=== PATIENT | female | born 1975 ===

== ENCOUNTER → 2018-12-05 10:41 | Day surgery (SDC) | payer BC ==
[~2018-12-05 10:41] MED LIST: Bacitracin OINTMENT* 0.5% 0.5 oz TUBE ONE; Buffered Lidocaine 1% SYRIN* 1 ML/SYRINGE INTRADERM ONE; Dexamethasone IV* 4 MG/ML 1 ML (4 MG) ONE; DiMENhydriNATE IV* 50 MG/ML VIAL ONE; Lactated Ringers 1000 ML Bag* 1,000 ML IV SCH; Lidocain 1% EPI 1:100,000 * 30 ML MDV ONE; Lidocaine 2% PF * 5 ML VIAL ONE; Lidocaine 4% TOPICAL* 50 ML TOP.SOLN ONE; Naloxone* 0.4 MG/ML 1 ML VIAL IV PRN; Ondansetron INJ* 2 MG/ML VIAL IV PRN; Ondansetron INJ* 2 MG/ML VIAL ONE; Oxymetazoline 0.05% NASAL SPR* 15 ML BTL ONE; Propofol* 10 MG/ML 20 ML BTL ONE; Scopolamine 1.5 mg* PATCH ONE; Sodium Citrate/Citric Acid* 15 ML UDC ONE; Sodium Citrate/Citric Acid* 15 ML UDC PO ONE; Succinylcholine* 20 MG/ML 10 ML VIAL ONE; fentaNYL* 50 MCG/ML 2 ML VIAL (100 MCG VIAL) IV PRN; fentaNYL* 50 MCG/ML 2 ML VIAL (100 MCG VIAL) ONE
[2018-12-05 19:01] VITALS: BP 130/76
--- NOTE | 2018-12-05 22:58 | OP ---
DATE OF OPERATION: 12/05/18 - [facility] DATE OF : 79 SURGEON: Jason Pimentel MD. BREAD AND PASTRY BAKER: None. ANESTHESIA: General. PRE-OP DIAGNOSIS: Deviated nasal septum, left inferior turbinate hypertrophy. POST-OP DIAGNOSIS: Deviated nasal septum, left inferior turbinate hypertrophy. OPERATIVE PROCEDURE: Septoplasty with left inferior turbinate cautery and outfracture. ESTIMATED BLOOD LOSS: Approximately 30 cc. SPECIMEN: None. There was some septal cartilage and bone that was discarded. INDICATION: This is a 43-year-old woman with really life long nasal airway obstruction. I first evaluated her for this about 12 years ago and at that point it was very clear that the majority of the issue was anatomic. She had an extremely deviated septum with compensatory hypertrophy of the left inferior turbinate. The decision was made ultimately to proceed with surgery. DESCRIPTION OF PROCEDURE: On 12/05/18, the patient was brought to the operating room. General anesthesia was induced and an oral endotracheal tube was placed. The patient was draped. A time-out was performed. Afrin and 4% lidocaine lidocaine-soaked pledgets were placed into each nasal cavity. The septum was then infiltrated with 1% lidocaine with 1:100,000 epinephrine, as was the columella. Once adequate time had been allotted for decongestion and vasoconstriction, the procedure was begun. A left hemitransfixion incision was made with a 15-blade. A left mucoperichondrial flap was elevated. Posterior to the transection incision, a vertical incision was made to the quadrangular cartilage providing access to submucoperichondrial space on the right. A mucoperichondrial flap on the right was then elevated. A combination of instruments, including a Lizzy swivel knife, through-cutting scissors and through-cutting rongeurs were used to remove the portions of septal cartilage and bone that were involved in deviation. Once this was complete, attention was turned towards the left inferior turbinate. It was in-fractured. Multiple passes were made through the turbinate with the Elmed bipolar device, it was then out-fractured. A large piece of quadrangular cartilage, which had been removed, was then selected. It was morselized and then placed back between the mucoperichondrial flaps and sutured in position with 4-0 plain gut. There was a tear in the right mucoperichondrial flap overlying the septal spur, but this was relatively minor and there was no opposing tear on the contralateral flap. The hemitransfixion incision was then closed with 4-0 chromic. Magnetic septal splints were then placed and sutured in position with 4-0 Prolene. The patient was then returned to the care of the anesthesiologist, extubated, and delivered to the PACU in stable condition. [id number]/[facility] #: [id number] CRISTINA
== END | disposition home or self-care (01) ==
LOC: OR 10:41
PROVIDERS: ATTEND Otolaryngology
DX: J34.2 Deviated nasal septum (principal); J34.3 Hypertrophy of nasal turbinates; I34.1 Nonrheumatic mitral (valve) prolapse
CPT/HCPCS: 81025; A9270-GY; J0330; J1100; J1240; J2405; J2704; J3010

== ENCOUNTER 2019-10-19 20:45 | Emergency (ER) | payer BC ==
--- OUTSIDE RECORDS SUMMARY | 2019-10-19 20:51 | XMS REPORT | Continuity of Care Document ---
:1975 External Reference #:[id number] Author Name BERNARD Pearson Address [address] [place] [address] Care Team Providers Name Role Phone Angy Pineda M.D. - Family Medicine Care Team Information Hotel General Manager Unavailable Jason Pimentel MD - Otolaryngology Care Team Information Hotel General Manager [phone] Problems Description No Active Problems Social History Type Date Description Comments Sex Unknown Tobacco Use Start: Unknown Never Smoked Cigarettes ETOH Use Occasional Tobacco Use Start: Unknown Patient has never smoked Smoking Status Reviewed: 09/05/17 Patient has never smoked Allergies, Adverse Reactions, Alerts Description No Known Drug Allergies Medications Active Medications SIG Qnty Indications Ordering Provider Date Mirena as directed Unknown 20mcg/24HR IUD Immunizations CPT Code Status Date Vaccine Lot # [id number] Given 05/31/2017 Influenza Vac, [place] [address] Given 05/17/2016 Influenza Vac, Quadrivalent, Slit Virus, Im Vital Signs Date Vital Result Comment 09/04/2019 4:03pm BP Systolic 100 mmHg BP Diastolic 74 mmHg Heart Rate 54 /min Body Temperature 97.5 F Height 67 inches 5'7" Weight 135.00 lb BMI (Body Mass Index) 21.1 kg/m2 09/17/2018 5:52pm BP Systolic 130 mmHg BP Diastolic 82 mmHg Heart Rate 66 /min Body Temperature 97.3 F Height 67 inches 5'7" Weight 134.00 lb BMI (Body Mass Index) 21.0 kg/m2 Results Description No Information Available Procedures Description No Information Available Medical Devices Description No Information Available Encounters Description No Information Available Assessments Description No Information Available Plan of Treatment 09/04/2019 - Smiley PearsonlComments:Medication Management Patient Understands medications he 's taking? Yes No Are there Barriers to Adherence? Yes No Has the patient been asked about herbal supplements and therapies, andOTC meds? Yes No As always, we strongly encourage a healthy diet and making physical activity a part of your every day life. If you have questions about how or where to start, please contact the office. Functional Status Description No Information Available Mental Status Description No Information Available Referrals Description No Information Available
--- OUTSIDE RECORDS SUMMARY | 2019-10-19 20:51 | XMS REPORT | Continuity of Care Document ---
:1975 External Reference #:[id number] Author Name BERNARD Pearson Address [address] [facility] [place] [address] Care Team Providers Name Role Phone Angy Pineda M.D. - Family Medicine Care Team Information Vision Therapist Unavailable Jason Pimentel MD - Otolaryngology Care Team Information Vision Therapist Problems Description No Active Problems Social History Type Date Description Comments Sex Unknown Tobacco Use Start: Unknown Never Smoked Cigarettes ETOH Use Occasional Tobacco Use Start: Unknown Patient has never smoked Smoking Status Reviewed: 09/05/17 Patient has never smoked Allergies, Adverse Reactions, Alerts Description No Known Drug Allergies Medications Active Medications SIG Qnty Indications Ordering Provider Date Rizatriptan Benzoate take one tablet by 14tabs G43.829 Pily 2019 mouth as directed BERNARD Reeves 5mg Tablets with onset, may repeat in 4 hours if effective first dose Mirena as directed Unknown 20mcg/24HR IUD Immunizations CPT Code Status Date Vaccine Lot # [id number] Given 09/04/2019 Influenza vac quadrivalent preservative free 6 [id number] months and [place] [address] Given 05/31/2017 Influenza Vac, [place] [address] Given 05/17/2016 Influenza Vac, Quadrivalent, Slit Virus, [...] BMI (Body Mass Index) 21.0 kg/m2 Results Test Acquired Date Facility Test Result H/L Range Note Laboratory test 09/04/2019 [facility] Cytology <pending> finding Thinprep w/rfx([facility] [place]) Laboratory test 09/04/2019 [facility]) TSH <pending> 0.5-5.0 finding CBC Electronic 09/04/2019 [facility] WBC 6.10 4.0-10.0 ([facility]) (607)- - RBC 4.43 3.93-6.0 Hemoglobin ([facility]/CTX) 13.9 g/dL 12.0-17.0 Hematocrit ([facility]/CTX) 41.1 % 35.0-50.0 Mean Corpuscular Vol 92.8 fL 80-95 Mean Corpuscular Hemoglobin 31.4 pg 25.6-32.2 Mean Corpuscular Hemo Concen 33.8 g/dL 32.2-36.0 Platelets 203 10^3/ul 163-400 RDW-CV 12.0 11.6-14.4 Mean Platelet Volume 10.5 fL 8.0-12.4 Absolute Neutrophils BLD 3.67 1.56-6.13 Absolute Lymphocytes 1.79 1.18-3.74 Absolute Monocytes BLD Auto 0.56 0.24-0.82 Absolute Eos Blood 0.07 0.04-0.54 Absolute Basophils 0.01 0.01-0.08 Neutrophil % 60.2 % 34.0-70.0 Lymph% 29.3 % 20.0-52.0 Monocytes % 9.2 % 5.0-12.0 Eos % 1.1 % 0.7-7.0 Basophil% 0.2 % 0-1.2 Procedures Description No Information Available Medical Devices Description No Information Available Encounters Description No Information Available Assessments Date Code Description Provider 09/04/2019 M25.531 Pain in right wrist BERNARD Pearson 09/04/2019 I34.1 Nonrheumatic mitral (valve) prolapse BERNARD Pearson 09/04/2019 Z12.31 Encounter for screening mammogram for BERNARD Pearson malignant neoplasm of breast 09/04/2019 N92.6 Irregular menstruation, unspecified Pily ReevesBERNARD 09/04/2019 G43.829 Menstrual migraine, not intractable, Pily BERNARD Reeves without status migrainosus 09/04/2019 Z00.00 Encounter for general adult medical Pily BERNARD Reeves examination without abnormal findings 09/04/2019 M25.572 Pain in left ankle and joints of left foot Pily BERNARD Reeves 09/04/2019 Z23 Encounter for immunization Pily BERNARD Reeves Plan of Treatment 09/04/2019 - Pily Rileybhart, TAMARPM25.531 Pain in right wristComments:per tdvuzgjuxtzR09.1 Nonrheumatic mitral (valve) prolapseNew Xrays:ECHO Transthoracic Complete, Ordered: 09/04/19Z12.31 Encounter for screening mammogram for malignant neoplasm of breastNew Xrays:Mammography Screening, Bilateral; 2-View Each Breast, Ordered: 09/04/19N92.6 Irregular menstruation, unspecifiedComments:You sound to be bleeding quite a bit, this is not expected course with MirenaCould add progesterone,may help with gastrointestinal effects as wellThere is no utility to this bleeding, in fact it's probably stressful to your bodyG43.829 Menstrual migraine, not intractable, without status migrainosusNew Medication:Rizatriptan Benzoate 5 mg - take one tablet by mouth as directed with onset, may repeat in 4 hours if effective first doseComments:b2 -- 400 mg every daymagnesium-- citrate, sulfate-- 300-600 mg daily (can make you stool more often so advance dose conservatively)fish oils--- these daily supplements help migraine sufferers if taken epsxoewbnL86.00 Encounter for general adult medical examination without abnormal vuaatwocB98.572 Pain in left ankle and joints of left footComments:return for PTZ23 Encounter for immunization Functional Status Description No Information Available Mental Status Description No Information Available Referrals Description No Information Available
--- OUTSIDE RECORDS SUMMARY | 2019-10-19 20:51 | XMS REPORT | Continuity of Care Document ---
:1975 External Reference #:[id number] Author Name BERNARD Gabriel-Cde (transmitted by agent of provider Paola Bermudez) Address [address] [place] [address] Care Team Providers Name Role Phone Angy Pineda MD - Family Care Team Information Circuit Board Assembler [phone] Medicine Angy Pineda MD - Family Care Team Information Circuit Board Assembler [phone] Medicine Problems Description No Information Available Social History Type Date Description Comments Sex Unknown Tobacco Use Start: Unknown Never Smoked Cigarettes ETOH Use Drinks 2 Alcoholic Beverages Per Day Tobacco Use Start: Unknown Patient has never smoked Smoking Status Reviewed: 10/13/19 Patient has never smoked Exercise Type/Frequency Exercises regularly 5x per week Allergies, Adverse Reactions, Alerts Description No Known Drug Allergies Medications Active Medications SIG Qnty Indications Ordering Date Provider Mirena (52 MG) Unknown 20mcg/24HR IUD Turmeric Occasionally Unknown Powder Mague Root Crystallized, fresh, Unknown or tea. As needed Immunizations CPT Code Status Date Vaccine Lot # [id number] Given 11/04/2006 Tdap - Tetanus/Diptheria/Acellular Pertussis Vital Signs Date Vital Result Comment 10/13/2019 4:03pm Height 67 inches 5'7" Weight 133.00 lb Heart Rate 65 /min BP Systolic 95 mmHg BP Diastolic 70 mmHg Respiratory Rate 16 /min Body Temperature 98.0 F Pain Level 0 O2 % BldC Oximetry 98 % BMI (Body Mass Index) 20.8 kg/m2 09/15/2019 2:50pm Height 67 inches 5'7" Weight 133.00 lb Heart Rate 71 /min BP Systolic 118 mmHg BP Diastolic 73 mmHg O2 % BldC Oximetry 99 % On Ra BMI (Body Mass Index) 20.8 kg/m2 Last Menstrual Period 1145600 Results Description No Information Available Procedures Date Code Description Status 10/05/2019 56826 ECHO Transthoracic, Real-Time 2D With Doppler And Color Completed Flow 10/05/2019 17014 ECHO Transthoracic, Real-Time 2D With Doppler And Color Completed Flow Medical Devices Description No Information Available Encounters Type Date Location Provider Dx Diagnosis Office Visit 09/15/2019 [facility] Teressa Walsh N92.5 Other specified 3:00p Clinic [facility] Sharmin irregular menstruation Z97.5 Presence of (intrauterine) contraceptive device Assessments Date Code Description Provider 10/13/2019 N92.5 Other specified irregular menstruation BERNARD Gabriel- Christian 10/13/2019 Z30.432 Encounter for removal of intrauterine BERNARD Gabriel- Christian contraceptive device 10/05/2019 I34.1 Nonrheumatic mitral (valve) prolapse Rehana Gatica M.D. 10/05/2019 I34.1 Nonrheumatic mitral (valve) prolapse Traveling ECHO 1 09/15/2019 N92.5 Other specified irregular menstruation BERNARD Gabriel- [place] 09/15/2019 Z97.5 Presence of (intrauterine) BERNARD Gabriel-[place] contraceptive device Plan of Treatment Future Appointment(s):03/02/2020 11:00 am - Sharmin [facility] at [facility]10/13/2019 - Bob GabrieleN92.5 Other specified irregular menstruationFollow up:4 monthsRecommendations:Your ultrasound looked good. Please check in to let me know how your cycle is when the IUD is removed Consider checking out "The Period Repair Manual" by Dr Conchis Benz30.432 Encounter for removal of intrauterine contraceptive deviceComments:Please call if you experience increased cramping or bleeding following the IUD removal Functional Status Description No Information Available Mental Status Description No Information Available Referrals Description No Information Available
--- OUTSIDE RECORDS SUMMARY | 2019-10-19 20:51 | XMS REPORT | Continuity of Care Document ---
:1975 External Reference #:[id number] Author Name Sharmin Gabriel (transmitted by agent of provider Vee Owens) Address [address], [place] [address] Care Team Providers Name Role Phone Angy Pineda MD - Family Care Team Information Leather Etcher [phone] Medicine Angy Pineda MD - Family Care Team Information Leather Etcher [phone] Medicine Problems Description No Information Available Social History Type Date Description Comments Sex Unknown Tobacco Use Start: Unknown Never Smoked Cigarettes Smoking Status Reviewed: 09/15/19 Never Smoked Cigarettes ETOH Use Drinks 2 Alcoholic Beverages Per Day Exercise Type/Frequency Exercises regularly 5x per week Allergies, Adverse Reactions, Alerts Description No Known Drug Allergies Medications Active Medications SIG Qnty Indications Ordering Date Provider Mirena (52 MG) Unknown 20mcg/24HR IUD Turmeric Occasionally Unknown Powder Mague Root Crystallized, fresh, Unknown or tea. As needed Immunizations CPT Code Status Date Vaccine Lot # [id number] Given 11/04/2006 Tdap - Tetanus/Diptheria/Acellular Pertussis Vital Signs Date Vital Result Comment 09/15/2019 2:50pm Height 67 inches 5'7" Weight 133.00 lb Heart Rate 71 /min BP Systolic 118 mmHg BP Diastolic 73 mmHg O2 % BldC Oximetry 99 % On Ra BMI (Body Mass Index) 20.8 kg/m2 Last Menstrual Period [id number] Results Description No Information Available Procedures Description No Information Available Medical Devices Description No Information Available Encounters Description No Information Available Assessments Date Code Description Provider 09/15/2019 N92.6 Irregular menstruation, unspecified Sharmin Gabriel Plan of Treatment Future Appointment(s):10/13/2019 4:00 pm - Sharmin Gabriel at [facility]09/15/2019 - Bob GabrieleN92.6 Irregular menstruation, unspecifiedFollow up:after ultrasoundRecommendations:Continue tracking your bleeding and symptoms Functional Status Description No Information Available Mental Status Description No Information Available Referrals Description No Information Available
[2019-10-19 21:04] VITALS: BP 125/72
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
== END 2019-10-19 22:55 | disposition home or self-care (01) ==
LOC: UCEAST 20:45
DX: S30.0XXA Contusion of lower back and pelvis, initial encounter (principal); Z91.09 Other allergy status, other than to drugs and biological substances; W11.XXXA Fall on and from ladder, initial encounter; Y92.9 Unspecified place or not applicable
CPT/HCPCS: 70450; 72100; 72125; 72128; 72220; 99211; G0463